=== PATIENT | male | born 1975 | race Caucasian/White ===

== ENCOUNTER → 2021-12-23 14:07 | Outpatient (CLI) | payer OTHER, SELFPAY ==
--- NOTE | ~2021-12-23 | XR_ITS ---
XR chest 2V DATE: 12/23/2021 14:19 INDICATION: Chronic cough TECHNIQUE: 2 views COMPARISON: None FINDINGS: Normal heart size. No hilar or mediastinal enlargement. No pulmonary infiltrate or consolid ation, pleural effusion or pulmonary vascular congestion or pneumothorax. There is mild thoracic scol iosis. IMPRESSION: No active cardiopulmonary disease Reviewed, dictated and finalized at location A.
== END ==
PROVIDERS: PCP Family Medicine; Visit Provider Family Medicine
DX: R05.3 Chronic cough (principal); M41.9 Scoliosis, unspecified
CPT/HCPCS: 71046

== ENCOUNTER 2022-03-14 08:10 | Outpatient (CLI) | payer OTHER, SELFPAY ==
--- NOTE | 2022-03-14 11:53 | WPDPFTINT ---
PFT Procedure Performed PFT Procedure Performed Spirometry with Pre/Post Bronchodilator Plethysmography (Lung Vol) Diffusing Cap (DLCO) Flow Vol Loop PFT Interpretation This is a pulmonary function test with pre and post-bronchodilator spirometry, plethysmography and diffusing capacity. The test was performed and results interpreted in accordance with the 2019 and 2005 ATS/ERS Task Force guidelines respectively using the Global Lung Function Initiative-2012 reference equations. Patient demonstrated good effort and cooperation. Reproducibility criteria were met. The quality of the pre bronchodilator spirometry maneuver was Grade A and post bronchodilator spirometry maneuver was Grade A. Findings: Spirometry: the contour the inspiratory and expiratory flow tracing are normal. The pre bronchodilator FVC is 5.19 L, 94% predicted. The pre bronchodilator FEV1 is 3.76 L, 86% predicted. The pre bronchodilator FEV1: FVC ratio 73%. The post bronchodilator FVC is 5.60 L, representing an 8% increase. The post bronchodilator FEV1 is 4.27 L, representing a 13% increase. The post bronchodilator FEV1: FVC ratio was 76%. Plethysmography: The total lung capacity is 7.56 L, 103% predicted. The functional residual capacity is 3.06 L, 82% predicted. The residual volume is 2.37 L, 117% predicted. Diffusing capacity: The diffusig capaity unadjusted for hemoglobin and carboxyhemoglobin is 42.4, 129% predicted. The diffusing capacity adjusted for alveolar volume is 6.29, 136% predicted. Impression: The spirometry is normal without evidence of an obstructive abnormality. There is significant improvement after inhaling a single dose of albuterol. The lung volumes are normal. The diffusing capacity unadjusted for hemoglobin and carboxyhemoglobin is increased and remains increased when adjusted for alveolar volume. There are no prior studies for comparison
== END 2022-03-14 08:11 | disposition home or self-care (01) ==
PROVIDERS: PCP Family Medicine; Visit Provider Family Medicine
DX: R05.3 Chronic cough (principal); U09.9 Post COVID-19 condition, unspecified
CPT/HCPCS: 94060; 94726; 94729

== ENCOUNTER 2023-07-22 10:19 | Outpatient (CLI) | payer OTHER, SELFPAY ==
--- NOTE | 2023-07-22 11:30 | NEURO_ITS ---
Impression: # Non-diabetic complains of numbness of right hand. # Moderately severe right Carpal Tunnel Syndrome. # No ulnar neuropathy. # Needle/EMG exam reveals mild neurogenic changes in right APB. Nerve Conduction Studies Anti Sensory Summary Table Stim Site NR Peak (ms) P-T Amp (?V) Site1 Site2 Delta-P (ms) Dist (cm) Karl (m/s) Right Median Anti Sensory (2-3nd Digit) Wrist 6.5 20.4 Wrist 2-3nd Digit 6.5 14.0 22 Wrist 6.0 15.6 Wrist 2-3nd Digit 6.5 14.0 22 Right Radial Anti Sensory (Base 1st Digit) Wrist 2.1 20.6 Wrist Base 1st Digit 2.1 0.0 Right Ulnar Anti Sensory (5th Digit) Wrist 2.7 36.5 Wrist 5th Digit 2.7 14.0 52 Motor Summary Table Stim Site NR Onset (ms) O-P Amp (mV) Site1 Site2 Delta-0 (ms) Dist (cm) Karl (m/s) Right Median Motor (Abd Poll Brev) Wrist 6.7 5.2 Elbow Wrist 6.0 31.0 52 Elbow 12.7 5.0 Right Ulnar Motor (Abd Dig Minimi) Wrist 2.7 5.2 A Elbow Wrist 5.9 32.0 54 A Elbow 8.6 5.1 F Wave Studies NR F-Lat (ms) L-R F-Lat (ms) Right Median (Mrkrs) (Abd Poll Brev) 36.32 Right Ulnar (Mrkrs) (Abd Dig Min) 32.65 EMG Side Muscle Nerve Root Ins Act Fibs Amp Dur Recrt Comment Right 1stDorInt Ulnar C8-T1 Nml Nml Nml Nml Nml Right Ext Indicis Radial (Post Int) C7-8 Nml Nml Nml Nml Nml Right Ext Digitorum Radial (Post Int) C7-8 Nml Nml Nml Nml Nml Right BrachioRad Radial C5-6 Nml Nml Nml Nml Nml Right PronatorTeres Median C6-7 Nml Nml Nml Nml Nml Right Abd Poll Brev Median C8-T1 Nml Nml Incr >12ms Reduced MTDD
== END 2023-07-22 10:20 | disposition home or self-care (01) ==
LOC: ANHNEURO 10:20
PROVIDERS: PCP Family Medicine; Visit Provider Family Medicine
DX: G56.01 Carpal tunnel syndrome, right upper limb (principal)
CPT/HCPCS: 95886; 95909

== ENCOUNTER 2023-08-17 09:25 | Outpatient (CLI) | payer OTHER, SELFPAY ==
--- NOTE | 2023-08-17 11:00 | NEURO_ITS ---
Impression: # Complains of left hand numbness. # Left Carpal Tunnel Syndrome. # No ulnar neuropathy. # Normal needle/EMG exam. Nerve Conduction Studies Anti Sensory Summary Table Stim Site NR Peak (ms) P-T Amp (?V) Site1 Site2 Delta-P (ms) Dist (cm) Karl (m/s) Left Median Anti Sensory (2-3nd Digit) Wrist 4.3 37.3 Wrist 2-3nd Digit 4.3 14.0 33 Wrist 4.8 24.6 Wrist 2-3nd Digit 4.3 14.0 33 Left Radial Anti Sensory (Base 1st Digit) Wrist 1.9 20.9 Wrist Base 1st Digit 1.9 0.0 Left Ulnar Anti Sensory (5th Digit) Wrist 2.8 24.0 Wrist 5th Digit 2.8 14.0 50 Motor Summary Table F Wave Studies NR F-Lat (ms) L-R F-Lat (ms) Left Median (Mrkrs) (Abd Poll Brev) 31.36 Left Ulnar (Mrkrs) (Abd Dig Min) 29.45 EMG Side Muscle Nerve Root Ins Act Fibs Amp Dur Recrt Comment Left 1stDorInt Ulnar C8-T1 Nml Nml Nml Nml Nml Left Ext Indicis Radial (Post Int) C7-8 Nml Nml Nml Nml Nml Left Ext Digitorum Radial (Post Int) C7-8 Nml Nml Nml Nml Nml Left BrachioRad Radial C5-6 Nml Nml Nml Nml Nml Left PronatorTeres Median C6-7 Nml Nml Nml Nml Nml Left Abd Poll Brev Median C8-T1 Nml Nml Nml Nml Nml MTDD
== END 2023-08-17 09:26 | disposition home or self-care (01) ==
LOC: ANHNEURO 09:26
PROVIDERS: PCP Family Medicine; Visit Provider Family Medicine
DX: G56.02 Carpal tunnel syndrome, left upper limb (principal)
CPT/HCPCS: 95886; 95909